=== PATIENT | female | born 1995 | race African-American/Black ===

== ENCOUNTER 2017-01-28 11:00 | Observation (INO) | payer OTHER ==
[~2017-01-28] VITALS: Ht 30.5 cm; Wt 0.5 kg
[~2017-01-28 11:00] MED LIST: FLUO20CA19 PO; TRAZ100T2 PO
[2017-01-28] MEDS ORDERED: LACTATED RINGER'S 1,000 ML IV ONE (11:59)
[2017-01-28] MEDS ORDERED: ONDANSETRON HCL 4 MG/2 ML VIAL IV ONE (12:00)
== END 2017-01-28 13:35 | disposition home or self-care (01) | DRG 566 ==
LOC: LDRP 11:00
PROVIDERS: ADMIT Specialist; ATTEND Specialist
DX: O99.013 Anemia complicating pregnancy, third trimester (principal); D57.1 Sickle-cell disease without crisis; O21.2 Late vomiting of pregnancy; Z3A.38 38 weeks gestation of pregnancy
CPT/HCPCS: 59025; 96361; 96374; G0378; J2405; 96365; 96366